=== PATIENT | male | born 1935 | race Caucasian/White ===

== ENCOUNTER → 2017-05-12 | Day surgery (SDC) | payer MEDICARE, BC ==
[~2017-05-12] MED LIST: ALLO100T PO; ALLO300T2 PO; AMLO5 PO; APIX2.5T PO; ASPI81TA11 PO; BENI20TA25 PO; BUPIVACAINE HCL PF 0.5% 30 ML VIAL ONE; BUPIVACAINE HCL PF 0.75% 30 ML VIAL ONE; CARB25TA PO; CARB25TA9 PO; DRON400 PO; FERR324T4 PO; FERR325T8 PO; FURO20 PO; MAGN250T3 PO; MULT400T PO; NITR1SUB3 SL; OMPR20CCR PO; POTA-243 PO; PRAM1TAB PO; PRAV20 PO; PRAV20TA2 PO; PROPOFOL 200 MG/20 ML AMP IV ONE; TRIAMCINOLONE ACETONIDE 40 MG/ML VIAL I-ARTICULR ONE; TYLE500T PO; VITA-13 PO; VITA10002 PO; VITA100036 PO; ZANT150T2 PO
--- NOTE | 2017-05-12 09:36 | M6 ---
cc: ROSANA ESPINOSA M.D. DATE: 05/12/2017 DATE OF : 1935 PROCEDURE Fluoroscopically guided bilateral lumbar facet joint injections. PROCEDURE NOTE History and physical was completed and signed. Consent was signed. Procedure site was marked. Medications were listed and reconciled. Pain score was recorded. Allergies were noted. Timeout was taken. Fluoroscopy time was recorded where applicable. Sedation was administered or directed by Dr. Espinosa. The patient was given oxygen. The patient was monitored by a registered nurse. Total procedure time was greater than 15 minutes. An IV was started, blood pressure cuff, pulse oximeter and EKG were applied. The patient was placed in the prone position on a Jorge table, sedated with small amounts of propofol titrated to effect. Vital signs were monitored and remained stable throughout the procedure. The sacral area was prepped with alcohol and 10% Betadine solution, draped with sterile drapes. Fluoroscopy was used in a Josh dog view to clearly visualize the bilateral lumbar facet joints at L3-4, L4-5 and L5-S1. Separate sterile 5-inch, 22-gauge spinal needles were advanced into these joints under fluoroscopic guidance. There was negative aspiration for blood or any other type of fluid and at each location the patient was given 1 mL of Marcaine 0.75% which contained 10 mg of Kenalog. Following the procedure the patient was taken to the recovery room with stable vital signs, neurologically intact. He will be evaluated immediately and with follow-up to determine if he has a subjective decrease in his usual pain and a corresponding objective increase in his functional capabilities. W. MD MARILIN Narayan/BOBY /9:17 AM /9:31 AM
== END | disposition home or self-care (01) ==
LOC: PHSDC 06:56
PROVIDERS: ATTEND Pain Medicine Interventional Pain Medicine
DX: M54.5 Low back pain (principal)
CPT/HCPCS: 64493; 64494; 64495; 99152; J3301

== ENCOUNTER → 2018-01-13 | Day surgery (SDC) | payer MEDICARE, BC ==
[~2018-01-13] MED LIST changes: -ASPI81TA11 PO; +ASPI81TA23 PO; -BENI20TA25 PO; -BUPIVACAINE HCL PF 0.5% 30 ML VIAL ONE; -CARB25TA PO; +CHOL10008 PO; +COLA100C5 PO; -DRON400 PO; -FERR324T4 PO; +FERR325T18 PO; -FERR325T8 PO; -FURO20 PO; -MAGN250T3 PO; -OMPR20CCR PO; -POTA-243 PO; -PRAV20 PO; +RANI300T PO; -TYLE500T PO; +VALS160T4 PO; -VITA-13 PO; -VITA100036 PO; +methylPREDNISolone ACETATE 40 MG/ML VIAL I-ARTICULR ONE
--- NOTE | 2018-01-13 09:27 | M6 ---
cc: Tami Espinosa MD DATE: 01/13/2018 PROCEDURE PERFORMED: Fluoroscopically-guided injection, bilateral lumbar facet joints (bilateral L3-L4, L4-L5 and L5-S1 facet joints). History and physical was completed and signed. Consent was signed. Procedure site was marked. Medications were listed and reconciled. Pain score was recorded. Allergies were noted. Time out was taken. Fluoroscopy time was recorded where applicable. Sedation was administered or directed by Dr. Espinosa. The patient was given oxygen. The patient was monitored by a registered nurse. Total procedure time was greater than 15 minutes. DESCRIPTION OF PROCEDURE: IV was started. Blood pressure cuff, pulse oximeter and EKG were applied. The patient was placed in the prone position on a Jorge table, sedated with small amounts of Propofol titrated to effect. Vital signs were monitored and remained stable throughout the procedure. The lumbar area was prepped with alcohol and 10% Betadine solution and draped with sterile drapes. Fluoroscopy was used in a Josh dog view to clearly visualize the bilateral lumbar facet joints at L3-L4, L4-L5 and L5-S1. Separate sterile 3.5-inch, 25-gauge spinal needles were advanced under fluoroscopic guidance into the joints. There was negative aspiration for blood or any other type of fluid and at each location, the patient was given 1 mL of Marcaine 0.75%, which contained 10 mg of Kenalog. Following the procedure, the patient was taken to the recovery room with stable vital signs, neurologically intact. He will be evaluated immediately and with followup to determine if he has a subjective decrease in his usual pain and a corresponding objective increase in his functional capabilities. Tami Espinosa MD WRM/TL , 09:16 AM , 09:27 AM
== END | disposition home or self-care (01) ==
LOC: PHSDC 07:29
PROVIDERS: ATTEND Pain Medicine Interventional Pain Medicine
DX: M54.5 Low back pain (principal)
CPT/HCPCS: 64493; 64494; 64495; 99152; J1030; J3301